=== PATIENT | female | born 1970 | race Caucasian/White ===

== ENCOUNTER 2018-06-11 08:46 | Day surgery (SDC) | payer BC ==
[2018-06-11] MEDS ORDERED: MIDAZOLAM 1 MG/ML 2 ML INJ ×2 (11:30)
[2018-06-11] MEDS ORDERED: FENTAnyl 50 MCG/ML VIAL (11:30)
== END 2018-06-11 13:03 | disposition home or self-care (01) ==
LOC: GIL 08:46
DX: K64.8 Other hemorrhoids (principal)
CPT/HCPCS: 45378